=== PATIENT | female | born 1940 | race Caucasian/White ===

== ENCOUNTER 2019-02-21 13:47 | Observation (INO) | payer OTHER ==
[~2019-02-21] VITALS: Ht 144.8 cm; Wt 89.8 kg
[2019-02-21 13:56] VITALS: BP 135/62
[2019-02-21] MEDS ORDERED: CARDURA4 MG PO (14:03)
[2019-02-21] MEDS ORDERED: TRIAMTERENE-HC1 EAC2 PO (14:03)
[2019-02-21] MEDS ORDERED: OXYBUTYNIN 5 MG5 M2 PO (14:03)
[2019-02-21 14:17] LABS: URINE BILIRUBIN NEGATIVE (Negative); URINE BLOOD NEGATIVE (Negative); URINE CLARITY CLEAR; URINE COLOR YELLOW; URINE GLUCOSE-RANDOM NEGATIVE (Negative); URINE KETONES NEGATIVE (Negative); URINE LEUKOCYTES-REFLEX NEGATIVE (Negative); URINE NITRITE-REFLEX NEGATIVE (Negative); URINE PROTEIN NEGATIVE (Negative); URINE SPECIFIC GRAVITY <= 1.005 (1.005-1.030)
[2019-02-21 14:43] LABS: ABSOLUTE EOSINOPHILS 0.1 thou/uL (0.0-0.7); ABSOLUTE MONOCYTES 0.4 thou/uL (0.0-1.2); BASOPHILS 0.8 %; EOSINOPHILS 2.6 %; HEMOGLOBIN 12.5 gm/dL (12.0-15.0); LYMPHOCYTES 27.7 %; MCH 32.2 pg (26.0-34.0); MCHC 33.7 g/dL (28.0-37.0); MCV 95.8 fL (80.0-100.0); MONOCYTES 12.5 %; MPV 10.1 fl. (7.2-11.1); NUCLEATED RBCS 0 /100WBC; PLATELET COUNT* 107 thou/uL (150-400); POLYS 56.4 %; RBC 3.86 mil/uL (4.20-5.00); RDW-CV 13.3 % (10.5-14.5); WBC 3.5 thou/uL (4.0-11.0)
[2019-02-21 14:48] LABS: ANION GAP 5 mmol/L (7-16); BUN 15 mg/dL (7-18); CALCIUM 9.1 mg/dL (8.5-10.1); CHLORIDE 108 mmol/L (98-107); CO2 30 mmol/L (21-32); CREATININE 0.7 mg/dL (0.6-1.3); GLUCOSE 98 mg/dL (70-99); POTASSIUM 3.5 mmol/L (3.5-5.1); SODIUM 143 mmol/L (136-145)
[2019-02-21 14:50] LABS: APTT 28.7 Seconds (25.0-31.3); INR 1.1; PROTIME 11.4 Seconds (9.20-11.50)
[2019-02-21 14:58] LABS: ALBUMIN 2.9 g/dL (3.4-5.0); ALKALINE PHOSPHATASE 102 U/L (46-116); LIPASE 79 U/L (73-393); SGOT 58 U/L (15-37); SGPT 48 U/L (30-65); TOTAL BILIRUBIN 0.8 mg/dL (<0.1-1.0); TOTAL PROTEIN 6.4 g/dL (6.4-8.2); TROPONIN-I LEVEL <0.06 ng/mL (<0.06)
[2019-02-21 18:02] VITALS: BP 146/68
--- NOTE | 2019-02-21 18:37 | NUR ---
PT ADMITTED WITH HERNIA. PT ALERT AND ORIENTED. ON ROOM AIR, LUNGS CLEAR. HERAT RATE REGULAR, PULSES 2+. ABD DISTENDED AND SOFT. HYPO ACTIVE BOWELS. LAST BM T-1. PT PAIN 10/07. MEDS GIVEN PRIOR TO TRANSFER. PT VOIDED. PT UP WITH 1 WITH WALKER AND GAIT BELT TO BATHROOM. HIGH FALL RISK PRECAUTIONS IN PLACE. HOURLY ROUNDNING COMPLETED. WILL CONTINUE TO MONITOR.
[2019-02-21 18:48] VITALS: BP 166/46
[2019-02-21 20:00] VITALS: BP 156/58
[2019-02-22 04:35] LABS: ABSOLUTE EOSINOPHILS 0.1 thou/uL (0.0-0.7); ABSOLUTE LYMPHOCYTES 1.2 thou/uL (0.8-5.3); ABSOLUTE MONOCYTES 0.6 thou/uL (0.0-1.2); ABSOLUTE NEUTROPHILS 2.1 thou/uL (1.6-8.1); BASOPHILS 0.9 %; EOSINOPHILS 2.9 %; HEMATOCRIT 32.7 % (37.0-47.0); LYMPHOCYTES 29.9 %; MCH 32.2 pg (26.0-34.0); MCHC 33.5 g/dL (28.0-37.0); MCV 96.1 fL (80.0-100.0); MPV 10.6 fl. (7.2-11.1); NUCLEATED RBCS 0 /100WBC; PLATELET COUNT* 103 thou/uL (150-400); POLYS 52.3 %; RBC 3.41 mil/uL (4.20-5.00); RDW-CV 13.2 % (10.5-14.5)
[2019-02-22 04:41] LABS: CREATININE 0.6 mg/dL (0.6-1.3); MAGNESIUM 1.6 mg/dL (1.8-2.4); POTASSIUM 3.4 mmol/L (3.5-5.1)
--- NOTE | 2019-02-22 06:29 | NUR ---
PT SLEPT WELL DURING THIS SHIFT. DAUGHTER AT BEDSIDE. PT ALERT/ORIENTED X4, PLEASANT. SURGEON SAW PT AT BEGINNING OF THE EVENING AND WAS ABLE TO MANIPULATED INTESTINE BACK THROUGH HERNIA WITH TWO ATTEMPTS. PT GIVEN FENTANYL 50MCG X1 FOR PAIN. PT SAID ABDOMINAL PAIN WAS MUCH BETTER BUT CONTINUES TO HAVE SEVERE LEG AND BACK PAIN. ORDER RECEIVED FOR VALIUM AND FLEXERIL AND PT SAID THIS HELPED HER TO RELAX AND TO BE COMFORTABLE IN BED. DAUGHTER ASSISTED PT TO BATHROOM WITH USE OF PT'S HOME WALKER. PT VOIDS YELLOW URINE. PT DENIES NEEDS AT THIS TIME. FREQUENTLY USED ITEMS AND CALL LIGHT WITHIN REACH. SIDERAILS UPX2. WILL CONTINUE TO MONITOR.
--- NOTE | 2019-02-22 08:42 | EKG ---
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
[2019-02-22 09:30] VITALS: BP 109/54
[2019-02-22 13:50] VITALS: BP 109/54
--- NOTE | 2019-02-22 14:04 | NUR ---
PT.RESTING IN BED. SHE IS BEING DISCHARGED TODAY. SHE WILL POSSIBLY HAVE VENTRAL HERNIA REPAIR AT A LATER DATE. SHE LIVES WITH HER DAUGHTER,PREETHI. SHE HAS A ROLLATOR WALKER THAT SHE USES. SHE IS MOSTLY INDEPENDENT. NO DISCHARGE NEEDS IDENTIFIED. Natalia. JUST SAW HER AND SAID SHE DID FINE.
[2019-02-22 14:41] VITALS: BP 109/54
--- NOTE | 2019-02-22 14:48 | NUR ---
DISCHARGE INSTRUCTIONS REVIEWED W/ PATIENT. PATIENT STATES VERBALLY OF UNDERSTANDING. COPY OF INSTRUCTIONS GIVEN TO PATIENT. SON AND DTR PRESENT. IV DISCONTINUED. CATH TIP INTACT. COTTON BALL/TAPE APPLIED TO SITE. PATIENT INSTRUCTED TO F/U W/ PCP, FAMILY STATES THEY WILL CALL AND MAKE THAT APPT.
--- NOTE | 2019-02-22 16:00 | NUR ---
DISCHARGE: PATIENT ESCORTED TO AWAITING VEHICLE PER PEDIS W/ IRRIGATOR HEAD AND CHILDREN PRESENT. BELONGINGS WITH SON. NO NEEDS VOICED AT THIS TIME PER IRRIGATOR HEAD. ~TJRN
--- NOTE | 2019-02-23 07:17 | NUR ---
PT. DISCHARGED FROM [facility] PRIOR TO OT EVALUATION.
--- NOTE | 2019-02-23 15:33 | CON ---
[address] [address] CONSULTATION Name: KAYLINROSITA Windy Room: [address] [place]#: [id number] Admission: 02/21/19 Attend Phys: Facundo Vega MD Discharge: 02/22/19 Date of : 42 Report #: [id number] THIS REPORT FOR: //name// CC: Rodger Vega DATE OF SERVICE: 02/21/2019 CONSULTING PHYSICIAN: Dr. Evans. REASON FOR CONSULTATION: Ventral hernia. ASSESSMENT: Ventral hernia, not strangulated. No alarming features for bowel compromise. RECOMMENDATIONS: 1. Currently, attempting to get IV access for pain meds. We will attempt to reduce at bedside. 2. If successful on reduction, the patient can likely be discharged tomorrow or when she is doing well from a pain standpoint. 3. If she is unable to be reduced, she will need to potentially have surgery. 4. The patient is not an ideal operative candidate due to her severe body habitus. Therefore, attempting conservative management with hernia reduction. HISTORY OF PRESENT ILLNESS: The patient is she is a 78-year-old female who developed worsening abdominal pain following movement this morning. The patient reports that the pain became so severe, so she presented to the ER. The pain is in the epigastrium and radiates bilaterally. The patient denies nausea or vomiting. She is having bowel movements. She denies fevers, chills, night sweats, chest pain or shortness of air. PAST MEDICAL HISTORY: Hypertension. PAST SURGICAL HISTORY: 1. Cholecystectomy. 2. Tubal ligation. 3. Appendectomy. SOCIAL HISTORY: Denies the use of alcohol, tobacco or recreational drugs. FAMILY HISTORY: Denies coagulopathy. REVIEW OF SYSTEMS: CONSTITUTIONAL: No fever. No chills. HEENT: Denies blurring of vision, double vision, headaches, hearing loss, sinus drainage or sore throat. Denies blurring of vision, double vision, headaches, [place] [address] CONSULTATION Name: ROSITA EWING Windy Room: [address]#: [id number] Admission: 02/21/19 Attend Phys: Facundo Vega MD Discharge: 02/22/19 Date of : 42 Report #: [id number] hearing loss, sinus drainage or sore throat. CARDIOVASCULAR: Denies chest pain, palpitations, orthopnea or paroxysmal nocturnal dyspnea. RESPIRATORY: Denies cough, wheezing, hemoptysis, or shortness of air. GASTROINTESTINAL: Please see above and below. GENITOURINARY: Denies dysuria or hematuria or kidney stones. No urinary frequency, urgency or incontinence. Denies dysuria or hematuria or kidney stones. No urinary frequency, urgency or incontinence. MUSCULOSKELETAL: No joint pain. No muscle pain. NEUROLOGICAL: Denies tremor, stroke or seizure. Denies tremor, stroke or seizure. HEMATOLOGIC / LYMPHATICS: Denies easy bruising, easy bleeding or enlarged lymph nodes. SKIN: No rash or ulceration. ENDOCRINE: No heat or cold intolerance PSYCHIATRIC: Denies depression, anxiety, or schizophrenia. PHYSICAL EXAMINATION: VITAL SIGNS: Temperature 36.4, pulse 81, respiratory rate 14, blood pressure 166/46, oxygen saturations 99% on room air. GENERAL: No apparent distress, alert and oriented x3. HEENT: PERRLA, EOMI, MMM, NCAT NECK: Supple. No LAD CARDIOVASCULAR: Regular rhythm and rate. Hemodynamically stable. Normal capillary refill. Regular rhythm and rate. Hemodynamically stable. Normal capillary refill. PULMONARY: Nonlabored. Clear to auscultation bilaterally. ABDOMEN: Soft, mild tenderness to palpation in the epigastrium at the place of the hernia. Otherwise, nontender, the patient is morbidly obese and has a large pannus. EXTREMITIES: Calves soft, nontender, no edema. SKIN: No rashes or bruises. PSYCHIATRIC: Normal mood and affect Normal mood and affect NEUROLOGICAL: Grossly intact. CN II-XII grossly intact. MUSCULOSKELETAL: 5/5 strength in upper extremities and lower extremities bilaterally LYMPHATICS: No cervical, inguinal, or supraclavicular lymphadenopathy. LABORATORY DATA: White blood count 3.5, hemoglobin 12.5, hematocrit 37, platelets 107. Sodium 143, potassium 3.5, chloride 108, bicarbonate 30, BUN 15, creatinine 0.7, lactic acid 1.2, AST 58, ALT 48. Troponin 0.06, albumin 2.9, lipase 79. IMAGING: CT of the abdomen and pelvis, impression: 1. Large hiatal hernia. The majority of the stomach [place] [address] CONSULTATION Name: GENNYROSITA GODINEZ Windy Room: [address]#: [id number] Admission: 02/21/19 Attend Phys: Facundo Vega MD Discharge: 02/22/19 Date of : 42 Report #: [id number] Additionally, there is nonobstructed small bowel loop within the hernia. 2. Supraumbilical transverse containing ventral hernia without evidence for strangulation or obstruction. 3. Horseshoe kidney. 4. Nonspecific 3 cm left adrenal mass. Noncontrast nonemergent CT followup is recommended to assess for an adrenal adenoma. 5. Panniculitis. 6. Sigmoid diverticulosis without diverticulitis. <ELECTRONICALLY SIGNED> By: Elia Evans MD 02/23/19 1533 2020 0055Cgermania Evans MD /nt
== END 2019-02-22 16:20 | disposition home or self-care (01) ==
LOC: M.ERS 13:47 → M.TBA-ER 17:18 → M.ORTHSURG 17:18
PROVIDERS: Nurse Practitioner Family; ADMIT Family Medicine
DX: K44.9 Diaphragmatic hernia without obstruction or gangrene (principal); K43.9 Ventral hernia without obstruction or gangrene; N32.81 Overactive bladder; D35.02 Benign neoplasm of left adrenal gland; I10 Essential (primary) hypertension; M54.40 Lumbago with sciatica, unspecified side; M10.9 Gout, unspecified; Z87.891 Personal history of nicotine dependence; Z90.49 Acquired absence of other specified parts of digestive tract; Z98.890 Other specified postprocedural states; Z79.899 Other long term (current) drug therapy

== ENCOUNTER 2019-07-05 11:01 | Emergency (ER) | payer MEDICARE ==
[~2019-07-05] VITALS: Ht 157.5 cm; Wt 87.5 kg
[~2019-07-05 11:01] MED LIST: CARDURA4 MG PO; OXYBUTYNIN 5 MG5 M2 PO; TRIAMTERENE-HC1 EAC2 PO
[2019-07-05 11:54] LABS: ABSOLUTE EOSINOPHILS 0.1 thou/uL (0.0-0.7); ABSOLUTE MONOCYTES 0.4 thou/uL (0.0-1.2); ABSOLUTE NEUTROPHILS 1.5 thou/uL (1.6-8.1); BASOPHILS 0.6 %; EOSINOPHILS 3.8 %; HEMATOCRIT 38.8 % (37.0-47.0); HEMOGLOBIN 13.2 gm/dL (12.0-15.0); LYMPHOCYTES 34.3 %; MCH 31.7 pg (26.0-34.0); MCV 93.2 fL (80.0-100.0); MONOCYTES 11.7 %; MPV 9.4 fl. (7.2-11.1); NUCLEATED RBCS 0 /100WBC; PLATELET COUNT* 112 thou/uL (150-400); POLYS 49.6 %; RBC 4.17 mil/uL (4.20-5.00); RDW-CV 14.1 % (10.5-14.5)
[2019-07-05 12:04] LABS: CREATININE 0.7 mg/dL (0.6-1.3); POTASSIUM 3.7 mmol/L (3.5-5.1)
[2019-07-05 12:08] LABS: ALBUMIN 2.7 g/dL (3.4-5.0); TOTAL BILIRUBIN 0.8 mg/dL (<0.1-1.0); TOTAL PROTEIN 6.3 g/dL (6.4-8.2)
[2019-07-05 13:13] LABS: URINE BILIRUBIN NEGATIVE (Negative); URINE BLOOD NEGATIVE (Negative); URINE CLARITY CLEAR; URINE COLOR YELLOW; URINE GLUCOSE-RANDOM NEGATIVE (Negative); URINE KETONES NEGATIVE (Negative); URINE LEUKOCYTES-REFLEX NEGATIVE (Negative); URINE NITRITE-REFLEX NEGATIVE (Negative); URINE PROTEIN NEGATIVE (Negative); URINE SPECIFIC GRAVITY 1.015 (1.005-1.030)
[2019-07-05 13:59] VITALS: BP 134/67
--- NOTE | 2019-07-05 15:22 | EKG ---
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[facility] : 1940 Requested By: Rik Reyes Order Number: [id number] MD: Boris Daily Measurements Intervals [place] Rate: 75 P: 19 [place]: 190 QRS: 0 QRSD: 94 T: 39 QT: 407 QTc: 455 Interpretive Statements Sinus rhythm Borderline low voltage, extremity leads Compared to ECG 02/21/2019 14:36:30 No significant changes Electronically Signed On 07-05-2019 15:22:21 PATIENT REGISTRATION SPECIALIST by Boris Daily [email or web address] <ELECTRONICALLY SIGNED> By: Boris Daily MD, [facility] 07/05/19 1522 1153 1153 Boris Daily MD, FACC /EPI
== END 2019-07-05 13:59 | disposition home or self-care (01) ==
LOC: M.ERS 11:01
PROVIDERS: Family Medicine
DX: K43.9 Ventral hernia without obstruction or gangrene (principal); I10 Essential (primary) hypertension; M10.9 Gout, unspecified; Z90.49 Acquired absence of other specified parts of digestive tract

== ENCOUNTER 2019-09-19 04:20 | Emergency (ER) | payer MEDICARE ==
[~2019-09-19] VITALS: Ht 157.5 cm; Wt 86.6 kg
[2019-09-19 05:02] LABS: ABSOLUTE EOSINOPHILS 0.1 thou/uL (0.0-0.7); ABSOLUTE LYMPHOCYTES 1.1 thou/uL (0.8-5.3); ABSOLUTE MONOCYTES 0.4 thou/uL (0.0-1.2); ABSOLUTE NEUTROPHILS 1.7 thou/uL (1.6-8.1); EOSINOPHILS 2.8 %; HEMATOCRIT 38.4 % (37.0-47.0); LYMPHOCYTES 32.6 %; MCH 31.6 pg (26.0-34.0); MCHC 33.8 g/dL (28.0-37.0); MCV 93.5 fL (80.0-100.0); MONOCYTES 12.6 %; MPV 10.6 fl. (7.2-11.1); NUCLEATED RBCS 0 /100WBC; PLATELET COUNT* 102 thou/uL (150-400); RBC 4.11 mil/uL (4.20-5.00); WBC 3.4 thou/uL (4.0-11.0)
[2019-09-19 05:13] LABS: CALCIUM 9.3 mg/dL (8.5-10.1); CREATININE 0.6 mg/dL (0.6-1.3); POTASSIUM 3.4 mmol/L (3.5-5.1)
[2019-09-19 06:44] LABS: URINE BILIRUBIN NEGATIVE (Negative); URINE BLOOD NEGATIVE (Negative); URINE CLARITY CLEAR; URINE COLOR YELLOW; URINE GLUCOSE-RANDOM NEGATIVE (Negative); URINE KETONES NEGATIVE (Negative); URINE LEUKOCYTES-REFLEX NEGATIVE (Negative); URINE NITRITE-REFLEX NEGATIVE (Negative); URINE PROTEIN NEGATIVE (Negative); URINE UROBILINOGEN 0.2 E.U./dl (0.2-1.0)
[2019-09-19 07:08] VITALS: BP 163/57
== END 2019-09-19 07:10 | disposition home or self-care (01) ==
LOC: M.ERS 04:20
PROVIDERS: Emergency Medicine
DX: K43.9 Ventral hernia without obstruction or gangrene (principal); I10 Essential (primary) hypertension; M10.9 Gout, unspecified; Z90.49 Acquired absence of other specified parts of digestive tract; Z98.51 Tubal ligation status

== ENCOUNTER 2021-03-16 05:15 | Observation (INO) | payer MEDICARE ==
[~2021-03-16] VITALS: Ht 152.4 cm; Wt 82.6 kg
[2021-03-16 05:22] VITALS: BP 114/72
[2021-03-16 05:45] LABS: ABSOLUTE EOSINOPHILS 0.1 thou/uL (0.0-0.7); ABSOLUTE LYMPHOCYTES 0.9 thou/uL (0.8-5.3); ABSOLUTE MONOCYTES 0.4 thou/uL (0.0-1.2); ABSOLUTE NEUTROPHILS 1.1 thou/uL (1.6-8.1); BASOPHILS 1.4 %; EOSINOPHILS 3.3 %; HEMATOCRIT 38.4 % (37.0-47.0); HEMOGLOBIN 12.9 gm/dL (12.0-15.0); MCH 32.5 pg (26.0-34.0); MCHC 33.6 g/dL (28.0-37.0); MCV 96.5 fL (80.0-100.0); MONOCYTES 14.3 %; MPV 9.7 fl. (7.2-11.1); NUCLEATED RBCS 0 /100WBC; PLATELET COUNT* 85 thou/uL (150-400); RBC 3.98 mil/uL (4.20-5.00); RDW-CV 14.7 % (10.5-14.5); WBC 2.6 thou/uL (4.0-11.0)
[2021-03-16 06:07] LABS: CALCIUM 9.3 mg/dL (8.5-10.1); CREATININE 0.7 mg/dL (0.6-1.3)
[2021-03-16 06:12] LABS: ALBUMIN 2.9 g/dL (3.4-5.0); MAGNESIUM 1.8 mg/dL (1.8-2.4); TOTAL BILIRUBIN 1.2 mg/dL (<0.1-1.0); TOTAL PROTEIN 6.5 g/dL (6.4-8.2)
[2021-03-16 08:01] LABS: URINE BILIRUBIN NEGATIVE (Negative); URINE BLOOD NEGATIVE (Negative); URINE CLARITY CLEAR; URINE COLOR YELLOW; URINE GLUCOSE-RANDOM NEGATIVE (Negative); URINE KETONES NEGATIVE (Negative); URINE LEUKOCYTES-REFLEX NEGATIVE (Negative); URINE NITRITE-REFLEX NEGATIVE (Negative); URINE PROTEIN NEGATIVE (Negative); URINE SPECIFIC GRAVITY 1.025 (1.005-1.030)
[2021-03-16 09:49] VITALS: BP 138/70
[2021-03-16 10:30] VITALS: BP 149/47
--- NOTE | 2021-03-16 11:00 | EKG ---
[place] [address] ELECTROCARDIOGRAM REPORT Name: ROSITA EWING Room: [address] ADM IN ..#: [id number] Admission: 03/16/21 Attend Phys: Abiodun Harris Discharge: Date of : 42 Date of Service: 03/16/21 0550 Report #: [id number] THIS REPORT FOR: //name// 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[facility] : 1940 Requested By: Tatianna Orellana Order Number: [id number] MD: Boris Daily Measurements Intervals [place] Rate: 92 P: 63 ID: 213 QRS: 9 QRSD: 93 T: 59 QT: 357 QTc: 442 Interpretive Statements Sinus rhythm Atrial premature complexes Borderline prolonged ID interval Low voltage, precordial leads Baseline wander in lead(s) I,II,aVR Compared to ECG 07/05/2019 11:53:35 Atrial premature complex(es) now present Electronically Signed On 03-16-2021 10:59:54 CDT by Boris Daily [email or web address] <ELECTRONICALLY SIGNED> By: Boris Daily MD, [facility] 03/16/21 1059 0550 0550 Boris Daily MD, [facility] /EPI
[2021-03-16 16:20] VITALS: BP 99/47
--- NOTE | 2021-03-16 17:43 | NUR ---
PATIENT ARRIVED TO UNIT FROM ER AT APPROX. 1000 FOR ABDOMINAL PAIN. PATIENT IS A&OX4, PLEASANT AND COOPERATIVE WITH CARES. PATIENT HAS DENIED ABDOMINAL PAIN AND NAUSEA SINCE BEING ON THE UNIT. DR. ASTUDILLO SAW PATIENT IN ROOM AND SCHEDULED APPOINTMENT OUTPATIENT. PATIENT'S IV CAME OUT AND SHE DID NOT WANT ANOTHER SINCE SHE IS SUPPOSED TO D/C TOMORROW. CONTACTED DR. CAMILO AND SHE IS OK WITH PATIENT NOT HAVING AN IV. PATIENT DID HAVE A BM TODAY AND REPORTS FEELING BETTER. PATIENT UP X1 ASSIST WITH HER ROLLER WALKER TO BATHROOM. CALL LIGHT AND FREQUENTLY USED ITEMS WITHIN REACH.
[2021-03-16 20:35] VITALS: BP 99/47
--- NOTE | 2021-03-16 21:24 | NUR ---
ASSUMED CARE OF PT AT APPROX 1914. PT RESTING IN BED. NO CO PAIN OR DISCOMFORT. DISCHARGE ORDERS PLACED. DISCHARGE EDUCATION GIVEN. PT LEFT FLOOR AT 2110 WITH DAUGHTER.
[2021-03-16 21:27] VITALS: BP 99/47
== END 2021-03-16 21:11 | disposition home or self-care (01) ==
LOC: M.ERS 05:15 → M.2W 08:28 → M.TBA-ER 08:28 → M.2W 10:00
PROVIDERS: Emergency Medicine; ADMIT Internal Medicine; ATTEND Internal Medicine
DX: K44.9 Diaphragmatic hernia without obstruction or gangrene (principal); K43.9 Ventral hernia without obstruction or gangrene; Z20.822 Contact with and (suspected) exposure to COVID-19; E87.6 Hypokalemia; D72.819 Decreased white blood cell count, unspecified; D69.6 Thrombocytopenia, unspecified; I10 Essential (primary) hypertension; M10.9 Gout, unspecified; Z79.899 Other long term (current) drug therapy